=== PATIENT | female | born 1970 | race Caucasian/White ===

== ENCOUNTER 2018-01-09 10:08 | Emergency (ER) | payer SELFPAY ==
[~2018-01-09] VITALS: Ht 167.6 cm; Wt 107.8 kg
[~2018-01-09 10:08] MED LIST: AFRIN,GENASAL D15 ML BOTH NARES; ALBUTEROL SULF8.5 GM IH; AMBIEN10 M1 PO; AMBIEN5 MG PO; BENADRYL50 MG PO; CELEXA20 MG PO; CIPRO500 MG PO; CITALOPRAM HBR20 MG PO; CYCLOBENZAPRINE10 M1 PO; ENDOCET 10-3251 EACH PO; FLEXERIL10 MG PO; FLONASE16 G1 BOTH NARES; FLOVENT 22120 INHALA IH; FUROSEMIDE20 MG PO; GUMMI BEAR MUL1 EACH PO; IBUPROFEN800 MG PO; K-DUR20 MEQ PO; LASIX40 MG PO; LYRICA75 MG PO; MOTRIN800 MG PO; NOHOMEMEDS; NORCO 5/3251 TABLET PO; PERCOCET 10/1 TABLET PO; PREDNISONE50 MG PO; SUDAFED 12-HOU120 MG PO; TYLENOL WITH C1 EACH PO; VICODIN,LORT1 TABLET PO; [UNRECOGNIZED DRUG - REMARK]
[2018-01-09 13:00] LABS: HEMATOCRIT 40.8 % (36.0-46.0); HEMOGLOBIN 14.1 G/DL (11.9-15.5); MCH 32.1 PG (29.0-34.0); MCHC 34.6 G/DL (30.0-36.0); MCV 92.9 FL (83-99); RBC DIS.WIDTH-CV 12.1 % (11.8-14.6); RBC DIS.WIDTH-SD 41.2 % (39-53); RED BLOOD COUNT 4.39 M/uL (3.80-5.20)
[2018-01-09 13:07] LABS: CHLORIDE 106 mEq/L (99-109); POTASSIUM 4.8 mEq/L (3.7-5.4); SODIUM 140 mEq/L (136-147)
[2018-01-09 13:09] LABS: GLUCOSE 81 mg/dL (70-99)
[2018-01-09 13:13] LABS: CREATININE 0.7 mg/dL (0.6-1.3); GFR ESTIMATE (CALCULATED) > 59 mL/min/
[2018-01-09 13:14] LABS: UREA NITROGEN (BUN) 14 mg/dL (9-23)
[2018-01-09] MEDS ORDERED: KEFLEX500 MG PO (14:11)
[2018-01-09 14:53] VITALS: BP 154/67
== END 2018-01-09 14:54 | disposition home or self-care (01) ==
LOC: EME 10:08
PROVIDERS: Nurse Practitioner Family
PROC: 0H94XZZ Drainage of Neck Skin, External Approach (ICD-10-PCS; principal; 2018-01-09)
DX: L02.11 Cutaneous abscess of neck (principal); J45.909 Unspecified asthma, uncomplicated; F17.200 Nicotine dependence, unspecified, uncomplicated; Z88.5 Allergy status to narcotic agent
CPT/HCPCS: 70360; 70491; 80048; 85027; 99281; 99283; J7030

== ENCOUNTER 2018-04-19 07:36 | Emergency (ER) | payer OTHER ==
[~2018-04-19] VITALS: Ht 182.9 cm; Wt 103.0 kg
[~2018-04-19 07:36] MED LIST changes: +KEFLEX500 MG PO
[2018-04-19] MEDS ORDERED: MOTRIN800 MG PO (08:57)
[2018-04-19 09:10] VITALS: BP 143/99
== END 2018-04-19 09:14 | disposition home or self-care (01) ==
LOC: EME 07:36
DX: S80.01XA Contusion of right knee, initial encounter (principal); S70.02XA Contusion of left hip, initial encounter; W01.0XXA Fall on same level from slipping, tripping and stumbling without subsequent striking against object, initial encounter; Y99.0 Civilian activity done for income or pay; M17.11 Unilateral primary osteoarthritis, right knee; M16.11 Unilateral primary osteoarthritis, right hip; R93.7 Abnormal findings on diagnostic imaging of other parts of musculoskeletal system; F17.200 Nicotine dependence, unspecified, uncomplicated; Z88.5 Allergy status to narcotic agent; Z88.7 Allergy status to serum and vaccine; Z88.8 Allergy status to other drugs, medicaments and biological substances
CPT/HCPCS: 73502; 73564; 99281; 99284